=== PATIENT | male | born 1990 | race Two or more races ===

== ENCOUNTER 2023-02-12 13:07 | Emergency (ER) | payer OTHER ==
[2023-02-12] MEDS: Diphtheria,Pertussis(Acell),Tetanus Vaccine 0.5 ML Syringe IM ONE (13:48)
[2023-02-12] MEDS: Lidocaine 1% 10 ML MDV INJECT ONE (13:49)
== END 2023-02-12 13:54 | disposition home or self-care (01) ==
LOC: VM.ED 13:07
DX: S01.512A Laceration without foreign body of oral cavity, initial encounter (principal); S03.2XXA Dislocation of tooth, initial encounter; Z23 Encounter for immunization; W20.8XXA Other cause of strike by thrown, projected or falling object, initial encounter
CPT/HCPCS: 12011; 90471; 90715; 99282; 99282-25; J3490